=== PATIENT | male | born 1965 | race Caucasian/White ===

== ENCOUNTER → 2018-08-13 | Outpatient (CLI) | payer BC ==
[~2018-08-13] MED LIST: ATOR10TA9 PO; CHOL200024 PO; GLUC-121 PO; LEVO75TA5 PO; MULT-658 PO
== END | disposition home or self-care (01) ==
LOC: CFH 06:48
PROVIDERS: ATTEND Orthopaedic Surgery
DX: M25.471 Effusion, right ankle (principal)

== ENCOUNTER 2018-08-22 10:21 | Day surgery (SDC) | payer BC ==
[~2018-08-22] VITALS: Ht 180.3 cm; Wt 82.3 kg
[~2018-08-22 10:21] MED LIST changes: +BUPIVACAINE/PF 0.5% ONE; +LIDOCAINE/PF 1%, 30ML ONE
[2018-08-22 11:07] VITALS: BP 109/71
[2018-08-22] MEDS ORDERED: LACTATED RINGERS 1,000 ML IV SCH (11:17)
[2018-08-22] MEDS ORDERED: CEFAZOLIN 1,000 MG ONE (13:02)
[2018-08-22] MEDS ORDERED: MIDAZOLAM 1 MG/ML, 2ML ONE (13:03)
[2018-08-22] MEDS ORDERED: FENTANYL PF 100 MCG/2ML ONE (13:03)
[2018-08-22] MEDS ORDERED: DEXAMETHASONE 4 MG/ML, 1ML ONE ×2 (13:31)
[2018-08-22] MEDS ORDERED: ROCURONIUM 10MG/ML,5ML ONE ×2 (13:31)
[2018-08-22] MEDS ORDERED: ONDANSETRON 2MG/ML, 2ML ONE ×2 (13:31)
[2018-08-22] MEDS ORDERED: PROPOFOL 10 MG/ML, 20ML ONE (13:31)
[2018-08-22] MEDS ORDERED: ROPIvacaine/PF 0.2%, 20 ML ONE ×2 (13:31)
[2018-08-22] MEDS ORDERED: SUCCINYLCHOLINE 20 MG/ML, 10ML ONE (13:31)
[2018-08-22] MEDS ORDERED: HALOPERIDOL 5 MG/ML IV PRN (14:00)
[2018-08-22] MEDS ORDERED: EPHEDRINE 50 MG/ML, 1ML IVPush PRN (14:00)
[2018-08-22] MEDS ORDERED: ACETAMINOPHEN 325 MG TABLET PO PRN (14:00)
[2018-08-22] MEDS ORDERED: OXYcodone 5 MG/5 ML ORAL.SOL UDC PO PRN (14:00)
[2018-08-22] MEDS ORDERED: HYDROmorphone 1 MG/ML, 1ML IV PRN (14:00)
[2018-08-22] MEDS ORDERED: ONDANSETRON ODT 8 MG PO PRN (14:00)
[2018-08-22] MEDS ORDERED: EPHEDRINE 50 MG/ML, 1ML IM PRN (14:00)
[2018-08-22] MEDS ORDERED: ONDANSETRON 2MG/ML, 2ML IV PRN (14:00)
[2018-08-22] MEDS ORDERED: hydrALAzine 20 MG/ML, 1ML IV PRN (14:00)
[2018-08-22] MEDS ORDERED: DIAZEPAM 5 MG/ML, 2ML IVPush PRN (14:00)
[2018-08-22] MEDS ORDERED: LABETALOL 5MG/ML, 20ML IV PRN (14:00)
[2018-08-22] MEDS ORDERED: MORPHINE SULFATE 4 MG/ML, 1ML IVPush PRN (14:00)
[2018-08-22] MEDS ORDERED: ALBUTEROL SULFATE 2.5 MG/3 ML NPPB PRN (14:00)
[2018-08-22] MEDS ORDERED: FENTANYL PF 100 MCG/2ML IV PRN (14:00)
[2018-08-22] MEDS ORDERED: PROMETHAZINE 12.5 MG SUPP PR PRN (14:00)
[2018-08-22] MEDS ORDERED: PROMETHAZINE 25 MG/ML, 1ML IV PRN (14:00)
[2018-08-22] MEDS ORDERED: MIDAZOLAM 1 MG/ML, 2ML IV PRN (14:00)
[2018-08-22] MEDS ORDERED: MEPERIDINE/PF 25MG/0.5ML IVPush PRN (14:00)
== END 2018-08-22 16:15 | disposition home or self-care (01) ==
LOC: OUT 10:21
PROVIDERS: ATTEND Orthopaedic Surgery
DX: M67.471 Ganglion, right ankle and foot (principal); Q68.8 Other specified congenital musculoskeletal deformities; E03.9 Hypothyroidism, unspecified; E78.5 Hyperlipidemia, unspecified; Z88.1 Allergy status to other antibiotic agents; Z72.89 Other problems related to lifestyle
CPT/HCPCS: 28020; 28090; J0330; J0690; J1100; J2250; J2405; J2704; J2795; J3010; J7120; J3490